=== PATIENT | female | born 1950 | race Asian ===

== ENCOUNTER → 2017-01-15 | Outpatient (CLI) | payer BC, MEDICARE, OTHER ==
--- NOTE | 2017-01-15 14:41 | XR ---
EXAMINATION TYPE: XR chest 2V DATE OF EXAM: 01/15/2017 COMPARISON: NONE TECHNIQUE: PA and lateral views submitted. HISTORY: Presurgical FINDINGS: The lungs are clear and there is no pneumothorax, pleural effusion, or focal pneumonia. Hypertrophi c change of the spine. Postsurgical changes are seen. Question for coronary artery stenting. IMPRESSION: 1. No acute process.
[2017-01-15 14:51] LABS: EKG EKG PERFORMED
[2017-01-15 14:59] LABS: Appearance,Urine Clear (Clear); Bilirubin,Urine Negative (Negative); Glucose,Urine (UA) Negative (Negative); Ketones,Urine Negative (Negative); Leukocyte Esterase,Urine Negative (Negative); Nitrite,Urine Negative (Negative); Protein,Urine Negative (Negative); Specific Gravity,Urine 1.011 (1.001-1.035); UA Billing (MACRO vs. MICRO) CHEM; Urobilinogen,Urine <2.0 mg/dL (<2.0)
[2017-01-15 15:01] LABS: CH 29.8; CHCM 33.6; HCT 43.2 % (34.0-46.0); HDW 2.53; HGB 14.2 gm/dL (11.4-16.0); MCH 29.1 pg (25.0-35.0); MCHC 32.8 g/dL (31.0-37.0); MCV 88.9 fL (80.0-100.0); Mean Platelet Volume 7.5; RBC 4.86 m/uL (3.80-5.40); RDW 13.3 % (11.5-15.5); WBC 8.6 k/uL (3.8-10.6)
[2017-01-15 15:15] LABS: INR 1.1 (<1.2); Partial Thromboplastin Time 24.6 sec (22.0-30.0); Prothrombin Time 10.8 sec (9.0-12.0)
[2017-01-15 15:21] LABS: Anion Gap 12 mmol/L; Blood Urea Nitrogen 19 mg/dL (7-17); Calcium 10.4 mg/dL (8.4-10.2); Carbon Dioxide 25 mmol/L (22-30); Chloride 104 mmol/L (98-107); Glucose 167 mg/dL (74-99); Non-African American GFR(MDRD) 49 (>60 ml/min/1.73 sqM); Potassium 4.4 mmol/L (3.5-5.1); Sodium 141 mmol/L (137-145)
== END | disposition home or self-care (01) ==
LOC: RADXRMAIN 14:20
PROVIDERS: ATTEND Orthopaedic Surgery Orthopaedic Surgery of the Spine
DX: Z01.818 Encounter for other preprocedural examination (principal); M51.27 Other intervertebral disc displacement, lumbosacral region
CPT/HCPCS: 71020; 80048; 81003; 85027; 85610; 85730; 93005

== ENCOUNTER 2017-01-22 10:33 | Day surgery (SDC) | payer BC, MEDICARE, OTHER ==
[2017-01-16 14:42] VITALS: BMI 26.5
--- NOTE | 2017-01-19 11:24 | CONS ---
Consultation dated 01/18/2017. CHIEF COMPLAINT: Preop evaluation. HISTORY OF PRESENT ILLNESS: This 66-year-old female is scheduled to undergo lumbosacral surgery. The patient has been seen by Dr. Lema and is planning her for a laminectomy and decompression with discectomy on L5-S1. The patient for the past few months has been having significant pain. The pain and discomfort is disabling. She has no loss of strength or weakness, however, she has constant pain and discomfort in the right leg with radicular symptoms. The patient's symptoms of pain radiates to the ankle. Patient has been evaluated and scheduled for his surgery. Past medical history is significant for hypertension for the past 50 years, history of diabetes mellitus for the past 15 years. She had breast cancer back in 2001 and again in 2014. She has undergone surgical surgeries. She had post surgery reconstruction and she developed significant infection with MRSA. Patient had removal of the prosthesis and treatment with IV vancomycin. The patient had right breast cancer in 2001, the left breast cancer in 2014 and the left breast implants were infected. Past history of hypothyroidism on replacement therapy. History of coronary artery disease with a stent placed in 1997 and subsequently CABG. 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 She had a stress testing done 3 years ago prior to her breast surgery. The patient at that time had no evidence of any ischemia. She has had no symptoms of angina, palpitations. Her dyspnea on exertion at one flight of stairs is stable. She does bike at least a mile a day. Past surgical history is significant for total abdominal hysterectomy, left shoulder surgery, right mastectomy and reconstruction left mastectomy and reconstruction with removal of the reconstruction. PERSONAL HISTORY: Nonsmoker. No alcohol. VACCINATION HISTORY: Pneumovax in 2008. ALLERGIES: None known. Medications have included Bystolic 5 mg daily, recommended cut it down to 2.5 mg daily. Medications included Humalog 6 units before lunch and 4 units before dinner, Percocet 10/325 one q.6 p.r.n., Lyrica 50 mg t.i.d., Flexeril 10 mg t.i.d., Zantac 150 mg b.i.d., Imdur 60 mg daily, Crestor 10 mg daily, Avalide 150-12.5 half tablet daily, Xanax 0.5 mg 1 at bedtime, Levoxyl 125 mcg daily, aspirin 81 mg daily, which is on hold. Patient uses Lasix 20 mg p.r.n. Allergies to ZYVOX, which caused her to have a rash. SOCIAL HISTORY: Patient , lives with her spouse. Spouse is a physician. FAMILY MEDICAL HISTORY: Father at the age of 70 of myocardial infarction. Mother at the age of 78, she had history diabetes mellitus ( ) history of CVA. Two brothers 70 and 71 with history of hypertension. A sister 66 with history of hypertension. The patient has 2 sons, 29 and 32 in adequate health. REVIEW OF SYSTEMS: NEURO: Denies frequent headaches, dizziness, double vision, blurred vision. No symptoms of TIA, syncope, seizures. PSYCH: Some apprehension. CARDIAC: Denies chest pain, angina, palpitations. Does have some dyspnea on exertion with one flight of stairs. RESPIRATORY: No shortness of breath, cough, hemoptysis. GI: No nausea, vomiting, abdominal pain, hematochezia or melena. ( ) diarrhea. Does have some chronic constipation. CONSTITUTIONAL: No fever or chills. HEMATOLOGICAL: No anemia or bleeding disorder. ENDOCRINE: History of diabetes mellitus with fair control. Hypothyroidism on replacement therapy. SKIN: No rashes or open ulcerations. ENT: Adequate hearing, smell, taste. Dentition well maintained. PHYSICAL EXAMINATION: A pleasant female at present in no distress. Vital signs reveal blood pressure 120/78, pulse 70 and regular. She weighs 159 pounds and BMI is ( ). HEENT: Normocephalic. Neck is supple. Pupils are reactive. Nostrils are clear. Oral cavity is moist. Gums in good health. Ears reveal no drainage. Neck reveals no JVD, carotid bruits or thyromegaly. Chest examination is clear to auscultation and percussion. CARDIAC: Normal S1 and S2 with no gallops or murmurs. Regular rhythm. Abdomen is soft. No palpable masses. Bowel sounds are normal. No organomegaly. No abdominal bruits. Extremities reveal no edema, good pulses both upper and lower extremities. Neurologically, awake, alert, oriented x3 with well coordinated movements. LABORATORY ASSESSMENT: Chest x-ray which revealed no evidence of any infective process. Blood group is A+. CBC was normal. Pt, PTT are normal. Electrolytes are normal. BUN 19, creatinine 1.11. Calcium 10.4. Glucose random was 167. Urinalysis unremarkable with no glycosuria or evidence to suggest infection. EKG and echo results are with Cardiology and pending. ASSESSMENT: 1. Stable coronary artery disease. 2. Hypertension, controlled. 3. History of diabetes mellitus under fair control. 4. Degenerative disc disease. 5. History of carcinoma of the breast. PLAN: The patient is stable to undergo the planned surgical procedure. I recommended for her not to take any medication on the morning of surgery. The patient been given ( ) preoperatively due to the history of MRSA infection post breast surgery. The patient's condition discussed with the patient. Prognosis remains guarded. MTDD
[~2017-01-22 10:33] MED LIST: BACITRACIN 50,000 UNIT, POLYMYXIN B 500,000 UNIT in SODIUM CHLORIDE 0.9% IRRIGATIO 1,00... IRRIGATION ONE; DEXAMETHASONE SOD PHOSPHATE 10 MG/ML 1 ML VIAL IV ONE; HYDROmorphone 1 MG/ML 1 ML SYRINGE IVP PRN; ONDANSETRON 4 MG/2 ML VIAL IVP ONE; ceFAZolin 2 GM in SODIUM CHLORIDE 0.9% 100 ML IVPB ONE
[2017-01-22] MEDS: LACTATED RINGERS 1,000 ML IV SCH (11:44)
[2017-01-22] MEDS ORDERED: LIDOCAINE 1% 20 ML VIAL (10MG/ML) FOR IV START INTRADERMA ONE (11:45)
[2017-01-22 11:49] LABS: Glucose,Whole Blood 113 mg/dL (75-99)
[2017-01-22] MEDS ORDERED: MIDAZOLAM 2 MG/2 ML VIAL IV ONE (12:20)
[2017-01-22] MEDS ORDERED: GELATIN SPONGE,ABSORB (LARGE) 1 EACH SPONGE TOPICAL ONE (12:46)
[2017-01-22] MEDS ORDERED: LIDOCAINE 0.5%-EPI 1:200,000 50 ML VIAL SQ ONE (12:46)
[2017-01-22] MEDS ORDERED: BUPIVACAINE (PF) 0.25% 30 ML VIAL SQ ONE (12:46)
[2017-01-22] MEDS ORDERED: ePHEDrine SULFATE/0.9% NACL/PF 50 MG/5 ML SYRINGE IV ONE (12:57)
[2017-01-22] MEDS ORDERED: SUCCINYLCHOLINE CHLORIDE 100 MG/5 ML SYR IV ONE (12:57)
[2017-01-22] MEDS ORDERED: fentaNYL (PF) 50 MCG/ML 2 ML AMP ONE (12:57)
[2017-01-22] MEDS ORDERED: LIDOCAINE 1% INJ 10MG/ML (20 ML MDV) ONE (12:57)
[2017-01-22] MEDS ORDERED: MIDAZOLAM 2 MG/2 ML VIAL ONE (12:57)
[2017-01-22] MEDS ORDERED: KETAMINE 10 MG/ML 20 ML VIAL ONE (12:57)
[2017-01-22] MEDS ORDERED: PROPOFOL 10 MG/ML 20 ML VIAL IV ONE (12:57)
[2017-01-22] MEDS ORDERED: ROCURONIUM BROMIDE 10 MG/ML 10 ML VIAL IV ONE (12:57)
[2017-01-22] MEDS ORDERED: THROMBIN (BOVINE) 5,000 UNIT VIAL TOPICAL ONE (13:05)
[2017-01-22] MEDS ORDERED: methylPREDNISolone ACETATE 40 MG/ML 1 ML VIAL INJ ONE (13:43)
--- NOTE | 2017-01-22 14:17 | XR ---
EXAMINATION TYPE: XR lumbar spine 1V, FL guidance operating room DATE OF EXAM: 01/22/2017 CLINICAL HISTORY: Lumbar discectomy. Back pain. TECHNIQUE: Fluoroscopy. COMPARISON: CT lumbar spine dated 02/12/2014 FINDINGS/IMPRESSION: Fluoroscopic guidance was provided during procedure performed by Dr. Lema. A total of 3 seconds of fluoroscopic time was utilized during the procedure and 1 spot images was acqui red.
[2017-01-22] MEDS ORDERED: DIAZEPAM 5 MG TAB PO PRN (14:25)
[2017-01-22] MEDS ORDERED: MAGNESIUM HYDROXIDE 2,400 MG/10 ML CUP PO PRN (14:25)
[2017-01-22] MEDS ORDERED: BENZOCAINE/MENTHOL LOZENG 1 EACH LOZENGE MUCOUS MEM PRN (14:25)
[2017-01-22] MEDS ORDERED: HYDROmorphone 1 MG/ML 1 ML SYRINGE IVP PRN (14:25)
[2017-01-22] MEDS ORDERED: ONDANSETRON 4 MG/2 ML VIAL IVP PRN (14:26)
[2017-01-22] MEDS ORDERED: IBUPROFEN 600 MG TAB PO PRN (14:26)
[2017-01-22] MEDS ORDERED: oxyCODONE-APAP 5-325MG 1 EACH TAB PO PRN (14:26)
[2017-01-22] MEDS ORDERED: FUROSEMIDE 20 MG TAB PO PRN (14:28)
[2017-01-22] MEDS ORDERED: CYCLOBENZAPRINE 10 MG TAB PO PRN (14:28)
[2017-01-22] MEDS ORDERED: LORATADINE 10 MG TAB PO PRN (14:28)
[2017-01-22] MEDS ORDERED: SENNOSIDES-DOCUSATE SODIUM 1 EACH TAB PO PRN (14:28)
[2017-01-22] MEDS ORDERED: POTASSIUM CHLORIDE ER 10 MEQ TAB.ER.PRT PO PRN (14:28)
--- NOTE | 2017-01-22 14:34 | P.OP ---
Date of Procedure: 01/22/17 Preoperative Diagnosis: Herniated nucleus pulposus L5-S1 Right lower extremity radiculopathy Right lower extremity weakness Postoperative Diagnosis: Same Procedure(s) Performed: Implants: Anesthesia: GETA Pathology: none sent Condition: stable Disposition: PACU Indications for Procedure: Operative Findings: Description of Procedure: BRIEF OPERATIVE NOTE Preoperative Diagnosis: Herniated nucleus pulposus L5-S1, right lower extremity radiculopathy, right lower extremity weakness, degenerative disc disease Postoperative Diagnosis: Same Procedure: Laminectomy and decompression L5-S1 Discectomy for decompression L5-S1 Surgeon: Dr. Lema Box Chipper: Brian MORRIS who is present throughout the entire the case persistence during positioning, dissection, exposure, visualization, and all crucial elements of the case as well as closure. Anesthesia: General anesthesia Estimated blood loss: Less than 50 mL Complications: None apparent Components implanted: None Disposition: To recovery room in good stable condition. OPERATIVE INDICATIONS The patient has been having issues in their lower back and lower extremities. She has been having severe right lower extremity radicular pain over S1 distribution. She is found have a new herniated disc at L5-S1 which correlated well with her symptoms. She does have a number of significant degenerative changes at her lumbar spine but these appear to be chronic in her new and acute issue appeared to be that of a disc herniation with radiculopathy at her right lower extremity. She was having some weakness at her right lower extremity as well. Her symptoms correlated best with the new disc herniation at L5-S1 we discussed dust various treatment options. She had gone through conservative treatment without significant benefit. The patient has been through conservative treatment. We discussed the possible continuation of conservative care versus the possibility of surgical intervention. We discussed various treatment options including surgery, and the patient wishes to proceed with surgery We discussed the risk, patient's alternatives and benefits of surgery including but not limited to, risk of bleeding risk of infection, risk of need for further surgery, risk of decreased, loss of motion, loss of function, nerve damage, paralysis, heart attack, blindness and . OPERATIVE SUMMARY After discussing all the risks, patient alternatives and benefits at length, the patient elected to proceed with surgical intervention, signed informed consent, and presented for their procedure. The patient was seen and examined in the preoperative holding area and the surgical site was marked. The patient was given antibiotics and brought to the operating room. The patient was sedated and intubated by anesthesia in standard fashion. The patient was positioned on to the operating room table in a prone position on the appropriate frame which was well-padded and well molded. We were careful to pad any bony prominences and pressure points. We were careful to maintain the patient's cervical spine and good neutral alignment and position throughout. The patient was prepped and draped in a normal standard fashion. An appropriate timeout and keystone protocol performed. We were able to proceed with the surgery. Fluoroscopy was utilized to establish the appropriate level at L5-S1. The local wound area was infiltrated with local anesthetic. An incision was made at the midline longitudinally over the appropriate levels at L5-S1. Dissection was taken down subcutaneously to the level of the fascia which was split midline. Dissection was taken over the lamina. Intraoperative fluoroscopy was taken which showed a marker at the appropriate level at L5-S1. With the appropriate level positively confirmed, we were able to proceed with laminectomy. The wound was copiously irrigated and suctioned dry as had been done periodically throughout the case. I performed a laminectomy with a combination of curettes and a high-speed bur and Kerrison rongeurs. A small medial facetectomy was performed again further access. A partial foraminotomy was also performed. Portions of the ligamentum flavum were taken down to expose the dura and traversing nerve root. I was able to mobilize the traversing nerve root and gain access to the disc space. Note was made of obvious compression from the disc. There is some evidence of extruded disc fragment causing significant compression of the traversing nerve root. Protecting the soft tissue structures, a small annulotomy was established. I was able to perform discectomy and remove any extruded disc fragments and any loose fragments from within the disc itself. There is some significant disc desiccation noted. I tried to preserve the disc annulus that appeared stable. I was able get good decompression at the space. There were no further extruded fragments noted. There is no evidence of dural tear or leak. Good hemostasis maintained. The wound was copiously irrigated and suctioned dry. Good decompression and discectomy was noted. We were able to proceed with closure. The fascia was closed for a watertight closure. The subcuticular tissue was closed with absorbable suture. The wound was cleaned and dried and dressed with the appropriate dressing. The drapes were broken down. The patient was gently rolled back onto their hospital bed being careful to maintain their cervical spine and good neutral alignment and position. They were woken up by anesthesia, extubated, and brought to the recovery room in good stable condition. The patient will be admitted to the hospital for observation and for appropriate postoperative care, medical management and monitoring. We will continue to follow them closely about the postoperative course.
[2017-01-22 15:07] LABS: Glucose,Whole Blood 118 mg/dL (75-99)
[2017-01-22] MEDS ORDERED: LACTATED RINGERS 1,000 ML IV ONE (15:26)
[2017-01-22] MEDS: SODIUM CHLORIDE 0.9% 1,000 ML IV SCH (15:59)
[2017-01-22] MEDS: oxyCODONE-APAP 10-325MG 1 EACH TAB PO PRN ×2 (16:29→22:36)
[2017-01-22] MEDS: PREGABALIN 50 MG CAP PO SCH ×2 (16:50→22:36)
[2017-01-22 17:20] LABS: Glucose,Whole Blood 96 mg/dL (75-99)
[2017-01-22] MEDS: HYDROmorphone 1 MG/ML 1 ML SYRINGE IVP PRN (18:04)
[2017-01-22 20:18] LABS: Glucose,Whole Blood 174 mg/dL (75-99)
[2017-01-22] MEDS ORDERED: ISOSORBIDE MONONITRATE ER 60 MG TAB.ER.24H PO SCH (21:00)
[2017-01-22] MEDS ORDERED: PANTOPRAZOLE 40 MG TABLET PO SCH (21:00)
[2017-01-22] MEDS ORDERED: ALPRAZolam 0.5 MG TAB PO SCH (21:00)
[2017-01-22] MEDS ORDERED: NEBIVOLOL 5 MG TAB PO SCH (21:00)
[2017-01-22] MEDS ORDERED: ATORVASTATIN 20 MG TAB PO SCH (21:00)
[2017-01-22] MEDS ORDERED: INSULIN GLARGINE 100 UNIT/ML 10 ML VIAL SQ SCH (21:00)
[2017-01-22] MEDS: ceFAZolin 2 GM in SODIUM CHLORIDE 0.9% 100 ML IVPB SCH (22:38)
[2017-01-23] MEDS: HYDROmorphone 1 MG/ML 1 ML SYRINGE IVP PRN (04:45)
[2017-01-23] MEDS: ceFAZolin 2 GM in SODIUM CHLORIDE 0.9% 100 ML IVPB SCH (04:46)
[2017-01-23] MEDS: SODIUM CHLORIDE 0.9% 1,000 ML IV SCH (05:14)
[2017-01-23] MEDS ORDERED: LEVOTHYROXINE 125 MCG TAB PO SCH (06:30)
[2017-01-23] MEDS: LACTATED RINGERS 1,000 ML IV SCH (07:25)
[2017-01-23 07:36] LABS: Glucose,Whole Blood 165 mg/dL (75-99)
[2017-01-23 07:57] VITALS: RESP 18; TEMP 97.1
[2017-01-23 08:01] VITALS: BP 126/58; PULSE 67
[2017-01-23] MEDS: PREGABALIN 50 MG CAP PO SCH (08:02)
--- NOTE | 2017-01-23 08:11 | P.DS ---
Providers Date of admission: The patient presented on the day of admission as per her operative note. She had a disc herniation at L5-S1 which is causing severe stenosis with right lower extremity radiculopathy and weakness. She underwent her laminectomy decompression with discectomy and feels that she has had significant improvement in her leg already. She is having some soreness in her back as expected. She is tolerating her diet and has been up to the bathroom and voiding freely. Physical Exam The incision site is clean dry and intact. There is no erythema no drainage. There is no purulence no evidence of infection. There is no active drainage. The Tegaderm is sealed. Abdomen soft and nontender. Chest has good excursion with deep inspiration and expiration. The patient has active and passive range of motion intact at the upper and lower extremities. There is no acute change in neurologic status. She may have some increased strength with plantar flexion. Hospital Course Postoperative day #1 status post laminectomy decompression with discectomy at L5 -S1 for her herniated nucleus pulposis with right lower extremity radiculopathy and weakness. She feels that she has had good improvement in her right leg in terms of pain already. She has been ambulatory in her room. Her back is sore but is being controlled with medicines. The patient has been making good progress postoperatively. They have completed the prophylactic antibiotics without any signs or symptoms of infection. The patient has been able to advance their diet , and is tolerating diet adequately. The pain was initially controlled with IV medications and is now controlled appropriately with oral medications. The patient has been able to increase their mobilization. The patient has progressed appropriately. I think they are in good stable condition for discharge today. They will be sent home with appropriate prescriptions. I answered their questions to the best of my ability in a language that they can understand and they are agreeable with the plan. They will follow up as directed in approximately 2 weeks or sooner if she is having any problems. Attending physician: South Lema Consults: 01/22/17 14:26 Consult Physician Routine Consulting Provider: Gage Caro Consult Reason/Comments: Medical management Do you want consulting provider notified?: Yes Primary care physician: Gage Caro Plan - Discharge Summary New Discharge Prescriptions: No Action Sennosides/Docusate Sodium [Naina-Colace Tablet] 1 tab PO DAILY PRN PRN Reason: Constipation Cyclobenzaprine [Flexeril] 10 mg PO TID PRN PRN Reason: Pain oxyCODONE HCL/ACETAMINOPHEN [Percocet 10-325 mg] 1 tab PO Q6HR PRN PRN Reason: Pain Pregabalin [Lyrica] 50 mg PO TID Potassium Chloride [K-Tab ER] 10 meq PO DAILY PRN PRN Reason: with lasix Loratadine [Claritin] 10 mg PO DAILY PRN PRN Reason: Congestion Furosemide [Lasix] 20 mg PO DAILY PRN PRN Reason: Edema Insulin Glargine,Hum.rec.anlog [Lantus Solostar] 16 units SQ HS ALPRAZolam [Xanax] 0.5 mg PO HS Rosuvastatin [Crestor] 10 mg PO HS Omeprazole [PriLOSEC] 20 mg PO HS Nebivolol [Bystolic] 5 mg PO HS Multivitamins, Thera [Multivitamin (formulary)] 1 tab PO DAILY Isosorbide Mononitrate ER [Imdur] 60 mg PO HS Aspirin 162 mg PO DAILY Levothyroxine Sodium [Synthroid] 125 mcg PO QAM Irbesartan/Hydrochlorothiazide [Irbesartan-Hctz 150-12.5 mg Tb] 1 tab PO QAM Discharge Medication List ALPRAZolam [Xanax] 0.5 mg PO HS 01/16/17 [History] Aspirin 162 mg PO DAILY 01/16/17 [History] Cyclobenzaprine [Flexeril] 10 mg PO TID PRN 01/16/17 [History] Furosemide [Lasix] 20 mg PO DAILY PRN 01/16/17 [History] Insulin Glargine,Hum.rec.anlog [Lantus Solostar] 16 units SQ HS 01/16/17 [ History] Irbesartan/Hydrochlorothiazide [Irbesartan-Hctz 150-12.5 mg Tb] 1 tab PO QAM 01/25 [History] Isosorbide Mononitrate ER [Imdur] 60 mg PO HS 01/16/17 [History] Levothyroxine Sodium [Synthroid] 125 mcg PO QAM 01/16/17 [History] Loratadine [Claritin] 10 mg PO DAILY PRN 01/16/17 [History] Multivitamins, Thera [Multivitamin (formulary)] 1 tab PO DAILY 01/16/17 [History ] Nebivolol [Bystolic] 5 mg PO HS 01/16/17 [History] Omeprazole [PriLOSEC] 20 mg PO HS 01/16/17 [History] Potassium Chloride [K-Tab ER] 10 meq PO DAILY PRN 01/16/17 [History] Pregabalin [Lyrica] 50 mg PO TID 01/16/17 [History] Rosuvastatin [Crestor] 10 mg PO HS 01/16/17 [History] Sennosides/Docusate Sodium [Naina-Colace Tablet] 1 tab PO DAILY PRN 01/16/17 [ History] oxyCODONE HCL/ACETAMINOPHEN [Percocet 10-325 mg] 1 tab PO Q6HR PRN 01/16/17 [ History] Follow up Appointment(s)/Referral(s): South Lema DO [Doctor of Osteopathic Medicine] - 2 Weeks Activity/Diet/Wound Care/Special Instructions: Avoid heavy or rigorous activity. May ambulate to tolerance. No repetitive bending twisting or stooping. No heavy lifting. May shower with waterproof Tegaderm intact. Keep site clean. On Sunday May remove dressing and then may leave area uncovered, but leave Steri-Strips intact and allow them to fray off on their own.
[2017-01-23] MEDS: oxyCODONE-APAP 10-325MG 1 EACH TAB PO PRN (08:37)
[2017-01-23] MEDS ORDERED: LOSARTAN-HCTZ 50-12.5 MG 1 EACH TAB PO SCH (09:00)
[2017-01-23] MEDS ORDERED: IRBESARTAN PO SCH (09:00)
[2017-01-23] MEDS ORDERED: SENNOSIDES-DOCUSATE SODIUM 1 EACH TAB PO SCH (09:00)
[2017-01-23] MEDS ORDERED: ASPIRIN 81 MG PO SCH (09:00)
[2017-01-23] MEDS ORDERED: HYDROCHLOROTHIAZIDE PO SCH (09:00)
[2017-01-23] MEDS ORDERED: [UNRECOGNIZED DRUG - OTHER] PO SCH (09:00)
--- NOTE | 2017-01-23 10:03 | PN ---
DATE OF SERVICE: 01/22/2017 CHIEF COMPLAINT: Re-evaluation . HISTORY OF PRESENT ILLNESS: This 66-year-old female was admitted to the hospital and undergone lumbar surgery. She felt a pain in the right leg significantly improved since surgery. The patient, however, has back pain, which is the site of surgery. Patient does have underlying history of coronary artery disease, stable with no symptoms of angina or palpitations, history of diabetes mellitus with adequately controlled sugars. She has had a previous history of carcinoma of the breasts bilateral. The patient at present denies any major symptoms. REVIEW OF SYSTEMS: NEURO: Has a headache. No dizziness. No double vision. PSYCH: No anxiety or depression. CARDIAC: No chest pain, angina or palpitation. RESPIRATORY: No shortness of breath, cough, hemoptysis. GI: No nausea, vomiting, abdominal pain. : No symptoms of dysuria or hematuria. EXTREMITIES: Denies pain. CONSTITUTIONAL: No fever or chills. PHYSICAL EXAMINATION: A pleasant female in no distress. Vitals reveal pulse 64, blood pressure 144/77, pulse ox 98% on 2 L. HEENT: Normocephalic. NECK: No JVD. CHEST: Clear to auscultation and percussion. CARDIAC: Normal S1, S2 with no gallops. Systolic murmur 2/6 left sternal border. ABDOMEN: Soft. Bowel sounds present. Extremities reveal no edema. Good pulses both upper and lower extremities. Neurologically: Awake, alert and oriented with well coordinated movements. LABORATORY ASSESSMENT: Blood sugar 118. ASSESSMENT: 1. Diabetes mellitus, adequately controlled. 2. Coronary artery disease, stable. 3. Degenerative arthritis. 4. Status post lumbar surgery. 5. History of carcinoma of the breast. PLAN: The patient is stable. Continue the present medical regimen. Condition discussed with the patient and spouse. Prognosis remains guarded. MTDD
[2017-01-23] MEDS ORDERED: MULTIVITAMINS, THERA 1 EACH TAB PO SCH (12:00)
--- NOTE | 2017-01-24 09:53 | PN ---
CHIEF COMPLAINT: Re-evaluation. HISTORY OF PRESENT ILLNESS: 66-year-old female status post lumbosacral surgery. The patient is doing well. Her pain in the right lower leg is resolved. She does complain of pain in the lower back at the site of the surgery. Otherwise, denies any other symptoms. REVIEW OF SYSTEMS: NEURO: Has some headache. Denies any dizziness. No pain in right leg. CARDIAC: Denies chest pain, angina, palpitation. RESPIRATORY: No shortness of breath, cough or hemoptysis. GI: No nausea, vomiting, abdominal pain, diarrhea. No bowel movement. : No dysuria or hematuria. EXTREMITIES: No pain. MUSCULOSKELETAL: Spine pain. PSYCH: No anxiety or depression. PHYSICAL EXAMINATION: Pleasant female in no distress. VITAL SIGNS: Reveal temperature 97.1, pulse 65, respirations 18, blood [id number]/58, pulse ox 96% on room air. HEENT: Normocephalic. NECK: No JVD. CHEST: Clear to auscultation. CARDIAC: Normal S1/S2 with no gallop. Systolic murmur 2/6 left sternal border. ABDOMEN: Soft. Bowel sounds present. EXTREMITIES: Reveal no edema, no tenderness. NEUROLOGIC: Awake, alert, oriented with well coordinated movement. LABORATORY ASSESSMENT: None new. Blood sugar this morning was 165. ASSESSMENT: 1. Diabetes mellitus on medical therapy. 2. Status post lumbosacral surgery. 3. Coronary artery disease, stable. 4. History of carcinoma of the breast. PLAN: The patient is stable. Will continue present medical regimen. Patient' s condition discussed withe patient. Prognosis guarded. MTDD
== END 2017-01-23 10:30 | disposition home or self-care (01) ==
LOC: OR 10:33 → 3SUR 14:37 → OR 01-23 10:30
PROVIDERS: ATTEND Orthopaedic Surgery Orthopaedic Surgery of the Spine
DX: M51.17 Intervertebral disc disorders with radiculopathy, lumbosacral region (principal); M51.16 Intervertebral disc disorders with radiculopathy, lumbar region; E03.9 Hypothyroidism, unspecified; E78.5 Hyperlipidemia, unspecified; I11.9 Hypertensive heart disease without heart failure; I25.10 Atherosclerotic heart disease of native coronary artery without angina pectoris; E11.9 Type 2 diabetes mellitus without complications; Z79.4 Long term (current) use of insulin; Z79.891 Long term (current) use of opiate analgesic; Z79.899 Other long term (current) drug therapy; Z88.1 Allergy status to other antibiotic agents; Z88.5 Allergy status to narcotic agent
CPT/HCPCS: 63047; 97161; 86900; 86901; 86850; 72020; J2250; J1030; J0690 ×2; J2405; J2001; J3010; J1170 ×2; J0330; J2704

== ENCOUNTER 2017-11-08 09:08 | Day surgery (SDC) | payer BC, MEDICARE, OTHER ==
[2017-11-06 10:55] VITALS: BMI 28.3
[~2017-11-08 09:08] MED LIST changes: -BACITRACIN 50,000 UNIT, POLYMYXIN B 500,000 UNIT in SODIUM CHLORIDE 0.9% IRRIGATIO 1,00... IRRIGATION ONE; -DEXAMETHASONE SOD PHOSPHATE 10 MG/ML 1 ML VIAL IV ONE; -HYDROmorphone 1 MG/ML 1 ML SYRINGE IVP PRN; +LACTATED RINGERS 1,000 ML IV SCH; -ONDANSETRON 4 MG/2 ML VIAL IVP ONE; -ceFAZolin 2 GM in SODIUM CHLORIDE 0.9% 100 ML IVPB ONE
[2017-11-08 09:33] VITALS: RESP 16; TEMP 97.7
[2017-11-08] MEDS ORDERED: LIDOCAINE 1% 20 ML VIAL (10MG/ML) FOR IV START INTRADERMA ONE (09:34)
[2017-11-08 09:35] LABS: Glucose,Whole Blood 139 mg/dL (75-99)
[2017-11-08] MEDS ORDERED: ONDANSETRON 4 MG/2 ML VIAL IVP ONE (09:40)
[2017-11-08] MEDS ORDERED: LIDOCAINE 1% INJ 10MG/ML (20 ML MDV) ONE (10:35)
[2017-11-08] MEDS ORDERED: PROPOFOL 10 MG/ML 20 ML VIAL IV ONE (10:35)
--- NOTE | 2017-11-08 10:57 | P.PCN ---
Date of Procedure: 11/08/17 Procedure(s) Performed: Brief history: Patient is a pleasant 67-year-old female, scheduled for an elective upper endoscopy as well as colonoscopy as a part of evaluation of abdominal pain for the last 2 months duration. Pain is mostly in the epigastric area associated with nausea but no emesis. She has been on Prilosec 20 mg twice daily with no help. She is hence scheduled for an upper endoscopy today. She'll also scheduled for screening colonoscopy in the last colonoscopy was 10 years ago. Procedure performed: Esophagogastroduodenoscopy with biopsy Colonoscopy with snare polypectomy Preoperative diagnosis: Epigastric pain/GERD Screening for colon cancer Anesthesia: MAC Procedure: After informed consent was obtained from the patient was brought into the endoscopy unit and IV sedation was administered by anesthesia under continuous monitoring. Initially upper endoscopy was done. The Olympus GF 160 video endoscope was inserted inserted into the mouth and esophagus intubated without any difficulty and was gradually advanced into the stomach and duodenum and carefully examined. The bulb and second part of the duodenum appeared normal. The scope was then withdrawn into the stomach adequately insufflated with air and upon careful examination in the antrum there were 2 ulcerations measuring 5 mm and 2 cm in size both of which were biopsied. and body, cardia and fundus appeared normal. The scope was then withdrawn into the esophagus. The GE junction was located at 40 cm to the incisors. It appeared regular with no erythema erosions or ulcerations. Rest of the esophagus appeared normal. Patient tolerated the procedure well. At this time the patient continued to remain sedation. Initial digital rectal examination was normal. Olympus CF 160 video colonoscope was then inserted into the rectum and gradually advanced to the cecum without any difficulty. Careful examination was performed as the scope was gradually being withdrawn. The prep was excellent. The cecum, appeared normal. In the ascending colon there was a 5-6 mm sessile polyp removed by snare polypectomy. The rest of the ascending colon, transverse colon, descending colon, sigmoid colon and rectum appeared normal. Retroflexion was performed in the rectum and small internal hemorrhoids were noted. Patient tolerated the procedure well. Impression: 1. Upper endoscopy revealed 2 antral ulcers measuring 5 mm and 2 cm in size and multiple superficial duodenal erosions or ulcerations. 2. Colonoscopy revealed 5-6 cm sessile ascending colon polyp status post polypectomy and small internal hemorrhoids. Recommendations: Findings of this examination were discussed with the patient as well as her family. She was advised to follow with the biopsy results. She will continue with omeprazole 20 mg twice daily and follow antireflux measures. She was advised to avoid NSAIDs. If the biopsy the colon polyp shows a tubular adenoma , she can have a repeat colonoscopy in 5 years.
[2017-11-08 11:10] LABS: Glucose,Whole Blood 138 mg/dL (75-99)
[2017-11-08 11:53] VITALS: BP 162/76; PULSE 65
[2017-11-08] MEDS ORDERED: MAG HYDROX/AL HYDROX/SIMETH 30 ML CUP PO PRN (12:14)
== END 2017-11-08 13:03 | disposition home or self-care (01) ==
LOC: ORWHC2ENDO 09:08
PROVIDERS: ATTEND Internal Medicine Gastroenterology
DX: D12.2 Benign neoplasm of ascending colon (principal); K21.9 Gastro-esophageal reflux disease without esophagitis; K25.9 Gastric ulcer, unspecified as acute or chronic, without hemorrhage or perforation; K26.9 Duodenal ulcer, unspecified as acute or chronic, without hemorrhage or perforation; E11.9 Type 2 diabetes mellitus without complications; I10 Essential (primary) hypertension; E78.5 Hyperlipidemia, unspecified; K64.8 Other hemorrhoids; Z88.5 Allergy status to narcotic agent; Z88.1 Allergy status to other antibiotic agents; Z95.1 Presence of aortocoronary bypass graft; Z95.5 Presence of coronary angioplasty implant and graft; Z79.891 Long term (current) use of opiate analgesic; Z79.4 Long term (current) use of insulin; Z79.82 Long term (current) use of aspirin; Z79.899 Other long term (current) drug therapy
CPT/HCPCS: 88305; 45385; 43239; J2405; J2001; J2704

== ENCOUNTER → 2021-09-28 | Outpatient (CLI) | payer MEDICARE ==
[~2021-09-28] MED LIST changes: +AMINOPHYLLINE 500 MG/20 ML VIAL IV ONE; -LACTATED RINGERS 1,000 ML IV SCH; +REGADENOSON 0.4 MG/5 ML SYRINGE IV PRN
--- NOTE | 2021-09-28 10:10 | CA ---
Transthoracic Echo Report Name: Kathy Johnson Age: 71 Gender: F : 1950 Exam Date: 09/28/2021 08:37 Exam Location: [facility] Ht (in): 63 Wt (lb): 169 Ordering Physician: Ruth Gonzales MD Attending/Referring Phys: Web Programmer Libby Lenug RDCS Procedure CPT: Indications: I20.0 unstable angina Cardiac Hx: Bypass and 1 stent Technical Quality: Contrast 1: Total Dose (mL): Contrast 2: Total Dose (mL): MEASUREMENTS (Male / Female) Normal Values 2D ECHO LV Diastolic Diameter PLAX 4.4 cm 4.2 - 5.9 / 3.9 - 5.3 cm LV Systolic Diameter PLAX 2.4 cm IVS Diastolic Thickness 1.2 cm 0.6 - 1.0 / 0.6 - 0.9 cm LVPW Diastolic Thickness 1.5 cm 0.6 - 1.0 / 0.6 - 0.9 cm LV Relative Wall Thickness 0.6 RV Internal Dim ED PLAX 2.6 cm M-MODE Aortic Root Diameter MM 2.8 cm LA Systolic Diameter MM 3.6 cm LA Ao Ratio MM 1.3 MV E Point Septal Separation 0.6 cm AV Cusp Separation MM 1.6 cm DOPPLER AV Peak Velocity 148.2 cm/s AV Peak Gradient 8.8 mmHg AI Peak Velocity 166.7 cm/s AI Peak Gradient 11.1 mmHg AI Pressure Half Time 770.5 ms MV Area PHT 3.7 cm MR Peak Velocity 110.3 cm/s MR Peak Gradient 4.9 mmHg Mitral E Point Velocity 76.1 cm/s Mitral A Point Velocity 85.3 cm/s Mitral E to A Ratio 0.9 MV Deceleration Time 203.3 ms MV E' Velocity 6.5 cm/s Mitral E to MV E' Ratio 11.7 TR Peak Velocity 147.4 cm/s TR Peak Gradient 8.7 mmHg Right Ventricular Systolic Press 13.7 mmHg FINDINGS Left Ventricle Mildly increased septal wall thickness. Moderately increased posterior wall thickness. Basal inferior septal and basal inferior is hypokinetic. Ejection fraction is 45-50%. Right Ventricle Normal right ventricular size and function. Right ventricular systolic pressure within normal limits. Right Atrium Normal right atrial size. Left Atrium Normal left atrial size. Mitral Valve Structurally normal mitral valve. Trace mitral regurgitation. Aortic Valve Trileaflet aortic valve. Trace aortic regurgitation. Tricuspid Valve Trace tricuspid regurgitation. Pulmonic Valve Pulmonic valve not well visualized. Pericardium Normal pericardium. Aorta Normal size aortic root and proximal ascending aorta. CONCLUSIONS #1. Concentric mild to moderate left ventricular hypertrophy with ejection fraction close to 50%. #2. There is hypokinesis of the inferobasal segment and inferior septal segment. #3. Normal valvular function with trace aortic and mitral regurgitation. #4. There is no pericardial effusion Previewed by: Dr. Fan Valenzuela MD (Electronically Signed) Final Date: 28 September 2021 10:08
--- NOTE | 2021-09-28 11:18 | P.STRESS ---
- Stress Test Note Stress Test Results/Findings: Exam Performed: NM stress lexiscan cardiolite Exam Date: 09/28/21 Reason for Exam: [place] Height: 5 ft 3 in Weight: 76.657 kg Protocol: LEXISCAN CARDIOLITE Stage: NA Duration of Exercise: NA Resting Heart Rate: 66 Resting Blood Pressure: 176/84 Maximum Achieved Heart Rate: 88 Maximum Achieved Blood Pressure: 180/86 85% PMHR: 127 100% PMHR: 149 METS: NA Technologist Comment: Stress Test Results/Findings: This is a 71-year-old female with history of hypertension, diabetes and hypercholesterolemia being evaluated for chest pains and shortness of breath. Patient also has COPD Stress data: Baseline EKG showed sinus rhythm with evidence of right bundle- branch block pattern. Blood pressure at rest is 176/84 with a pulse rate of 66. History and also Lexiscan was infused. EKGs during and after infusion continued to show right bundle branch block without any significant change from the baseline. Patient developed headache, nausea which were relieved after giving IV Aminophyllin. Final impression: #1. Negative Lexiscan stress test #2. Report on the nuclear images to be provided by the radiologist.
--- NOTE | 2021-09-28 12:06 | NM ---
EXAMINATION TYPE: NM stress lexiscan cardiolite DATE OF EXAM: 09/28/2021 COMPARISON: NONE HISTORY: I20.0 unstable angina TECHNIQUE: After the intravenous administration of 9.7 mCi Tc 99m Sestamibi - Cardiolite resting SPE CT images acquired 47 minutes post injection. The patient received 0.4mg Lexiscan, 24.4 mCi Tc 99m Sestamibi - Stress images obtained [address] injection FINDINGS: Review of stress and rest SPECT images demonstrates reversible decreased perfusion inferior wall. Str ess-induced ischemia is not excluded. Gated analysis shows normal wall motion with an estimated left ventricular ejection fraction of 70 %. IMPRESSION: I cannot exclude stress-induced ischemia inferior wall.
== END | disposition home or self-care (01) ==
LOC: RADECHMAIN 08:07
PROVIDERS: ATTEND Family Medicine
DX: I20.0 Unstable angina (principal)
CPT/HCPCS: 93017; 93306; 78452; A9500; J2785

== ENCOUNTER → 2021-10-03 | Outpatient (CLI) | payer MEDICARE ==
[2021-10-03 23:31] LABS: HCT 35.5 % (37.2-46.3); MCH 20.7 pg (27.0-32.0); MCHC 28.2 g/dL (32.0-37.0); MCV 73.3 fL (80.0-97.0); Mean Platelet Volume 10.4 fL (9.5-12.2); NRBC Per 100 WBC 0 /100 WBCS (0.0-0.0); Platelet Count 405 X 10*3/uL (140-440); RBC 4.84 X 10*6/uL (4.10-5.20); RDW 22.4 % (11.5-14.5); WBC 9.22 X 10*3/uL (4.50-10.00)
[2021-10-04 04:58] LABS: African American GFR (CKD) 58.5 (60.0-200.0); Blood Urea Nitrogen 20.3 mg/dL (9.0-27.0); Non-African American GFR(CKD) 50.5 (60.0-200.0); Potassium 4.4 mmol/L (3.5-5.5)
== END | disposition home or self-care (01) ==
LOC: LABPAT 14:52
PROVIDERS: ATTEND Internal Medicine Cardiovascular Disease
DX: Z01.812 Encounter for preprocedural laboratory examination (principal); R07.9 Chest pain, unspecified
CPT/HCPCS: 36415; 80051; 82565; 84520; 85027

== ENCOUNTER 2021-10-06 09:07 | Day surgery (SDC) | payer MEDICARE ==
[2021-10-04 15:05] VITALS: BMI 29.7
[~2021-10-06 09:07] MED LIST changes: +ALPRAZolam 0.25 MG TAB PO PRN; +ALPRAZolam 0.5 MG TAB PO PRN; -AMINOPHYLLINE 500 MG/20 ML VIAL IV ONE; +ASPIRIN 325 MG TAB PO ONE; +ATORVASTATIN 80 MG TAB PO ONE; +EMPTY BAG 1 BAG with SODIUM CHLORIDE 0.9% 1,000 ML IV SCH; +HEPARIN SODIUM,PORCINE 10,000 UNIT in SODIUM CHLORIDE 0.9% 1,000 ML IRRIGATION PRN; +HEPARIN SODIUM,PORCINE 2,500 UNIT in SODIUM CHLORIDE 0.9% 250 ML IRRIGATION PRN; +NITROGLYCERIN SL TABS 0.4 MG TAB SUBLINGUAL PRN; -REGADENOSON 0.4 MG/5 ML SYRINGE IV PRN
[2021-10-06 09:27] VITALS: RESP 18; TEMP 97.1
[2021-10-06] MEDS ORDERED: SODIUM CHLORIDE 0.9% 1,000 ML IV ONE (09:30)
[2021-10-06 09:36] LABS: Glucose,Whole Blood 131 mg/dL (75-99)
[2021-10-06] MEDS ORDERED: VERAPAMIL 2.5 MG/ML 2 ML AMP ONE (09:45)
[2021-10-06] MEDS ORDERED: HEPARIN SODIUM 1,000 UN/ML (10ML VL) ONE (09:45)
[2021-10-06] MEDS ORDERED: MIDAZOLAM 2 MG/2 ML VIAL IV ONE (09:57)
[2021-10-06] MEDS ORDERED: LIDOCAINE 1% INJ 10MG/ML (5 ML VIAL-PF) SQ ONE (09:59)
[2021-10-06] MEDS ORDERED: fentaNYL (PF) 50 MCG/ML 2 ML AMP ONE (09:59)
[2021-10-06] MEDS ORDERED: fentaNYL (PF) 50 MCG/ML 2 ML AMP IV ONE (09:59)
[2021-10-06] MEDS ORDERED: VERAPAMIL SYRINGE (5 MG/10 ML) INTRAARTER ONE (10:00)
[2021-10-06] MEDS ORDERED: HEPARIN SODIUM 1,000 UN/ML (10ML VL) IV ONE (10:08)
[2021-10-06] MEDS ORDERED: IOPAMIDOL-370 100ML BTL INJ ONE (10:21)
[2021-10-06] MEDS ORDERED: SODIUM CHLORIDE 0.9% 1,000 ML IV SCH (10:30)
--- NOTE | 2021-10-06 12:27 | CC ---
CARDIAC CATHETERIZATION REPORT DATE OF SERVICE: 10/06/2021 PROCEDURE: Left heart catheterization, coronary angiography and selective injection of bypass graft. PERFORMED BY: Dr. Ruth Mcdonough. Moderate conscious sedation time was 20 minutes. Patient was administered Versed and fentanyl. Oxygen saturation, hemodynamics and EKG were monitored closely. CLINICAL INFORMATION: Mrs. Kathy Johnson is a 71-year-old lady with type 2 diabetes, hypertension, hyperlipidemia, previous stenting of RCA that was complicated by a dissection requiring single-vessel bypass surgery about 10 years ago in [place]. She has been having symptoms of nondescript chest tightness and pressure with activity and a positive stress test. She was seen and evaluated by Dr. Carter, who advised cardiac catheterization and requested me to perform the procedure. I met with the patient and her , spoke to them at length regarding the rationale, risks, benefits and options. They understood all details and wished to proceed with the procedure. PROCEDURE NOTE: Under local anesthesia and strict aseptic precautions, a 6-Amharic introducer was placed in the right radial artery. Using JL3.5 and JR4 catheters, I performed coronary angiography, and the same right catheter was used to check LV pressures. The same catheter was used to check selective injection of the [place] RCA and the vein graft to RCA. Patient tolerated procedure well. The sheath was taken out and TR band applied as per protocol. Saturation in the fingers of the right hand was 96%. Patient received 3000 units of heparin intravenously. CARDIAC CATHETERIZATION FINDINGS: The left ventricular end-diastolic pressure was about 13 to 14 mmHg without any gradient across the aortic valve. CORONARY ANGIOGRAPHY FINDINGS: RIGHT CORONARY ARTERY: This is totally occluded, seen as a stump, with very limited antegrade flow. SAPHENOUS VEIN GRAFT TO THE RCA: This graft is also totally occluded and seen as a stump. LEFT MAIN CORONARY ARTERY: Short, patent, disease-free vessel that bifurcates into LAD and circumflex. LEFT ANTERIOR DESCENDING CORONARY ARTERY: Good-caliber vessel extends along the anterior wall, gives off septal and diagonal branches. LAD is a large system. No significant disease. It curves over the apex and supplies the inferoapical portion of the left ventricle. Septal branches have minor irregularities and they provide rich collaterals to the distal branches of RCA. There is one diagonal branch of about 1.5 to 2 mm in caliber, small distribution, has a mid lesion of 60%. No significant disease in the rest of LAD. LEFT POSTERIOR CIRCUMFLEX CORONARY ARTERY: Nondominant vessel but good caliber and distribution, has about a 30% mid lesion, long; from this diseased area, a groove branch comes off and this groove branch has about a 70% ostial narrowing. This branch is of 2 mm caliber and fair distribution. This is a small vessel and I do not believe it is significant in terms of the myocardial distribution. Continuation of the circumflex beyond the origin of the groove branch is an obtuse marginal system which is very large in caliber and distribution and distally bifurcates into two large branches. There is no significant disease in the entire circumflex system after the groove branch, which has about a 70% ostial narrowing. LEFT VENTRICULOGRAM: Left ventriculogram was not performed. FINAL IMPRESSION: This patient has a right-dominant system, total occlusion of the RCA as well as the vein graft to the RCA. Filling pressures are acceptable without any gradient across aortic valve. LAD has no significant disease, major diagonal, small in caliber and distribution, has 60% narrowing. Samish circumflex has a long 30% area of disease in the mid portion where a branch comes off like a groove branch, and this has a 70% to 80% narrowing, but the amount of myocardium supplied by the groove branch is small. Circumflex itself is a large-caliber, large-distribution vessel distally and has no significant disease. Left ventriculogram was not performed. Findings were discussed with the patient as well as her and Dr. Carter. I am recommending that we pursue aggressive medical therapy and risk factor modification. No percutaneous or surgical intervention is necessary at this time. If the patient continues to have symptoms, then we can look at different options, including percutaneous intervention, but I believe that continued medical therapy is the best approach. MMODL / IJN: [id number] /
[2021-10-06 15:24] VITALS: BP 128/64; PULSE 64
== END 2021-10-06 16:01 | disposition home or self-care (01) ==
LOC: CATHCVL 09:07
PROVIDERS: ATTEND Internal Medicine Interventional Cardiology
DX: I25.710 Atherosclerosis of autologous vein coronary artery bypass graft(s) with unstable angina pectoris (principal); I25.82 Chronic total occlusion of coronary artery; I25.110 Atherosclerotic heart disease of native coronary artery with unstable angina pectoris; I10 Essential (primary) hypertension; E78.00 Pure hypercholesterolemia, unspecified; E11.9 Type 2 diabetes mellitus without complications; E78.2 Mixed hyperlipidemia; Z20.822 Contact with and (suspected) exposure to COVID-19; I25.2 Old myocardial infarction; Z82.49 Family history of ischemic heart disease and other diseases of the circulatory system; Z95.1 Presence of aortocoronary bypass graft; Z95.5 Presence of coronary angioplasty implant and graft; Z79.899 Other long term (current) drug therapy; Z79.890 Hormone replacement therapy; Z79.4 Long term (current) use of insulin; Z88.5 Allergy status to narcotic agent
CPT/HCPCS: 93459; 87635; C1769 ×2; J2250; J2001; J3010; J1644; Q9967

== ENCOUNTER → 2023-01-09 | Outpatient (CLI) | payer MEDICARE ==
--- NOTE | 2023-01-09 18:39 | BD ---
EXAMINATION TYPE: Axial Bone Density DATE OF EXAM: 01/09/2023 CLINICAL HISTORY: 72 years old Female. ICD-10 CODE: N95.1 POST MENOPAUSAL Height: 60" Weight: 162.6lbs FRAX RISK QUESTIONS: Alcohol (3 or more units per day): No Family History (Parent hip fracture): No Glucocorticoids (More than 3mos): No (Ex: prednisone, prednisolone, methylprednisolone, dexamethasone, and hydrocortisone). History of Fracture in Adulthood: No Secondary Osteoporosis: 1. Type 1 Diabetes: No 2. Hyperthyroidism: No 3. Menopause before 45: Yes, 43 4. Malnutrition: No 5. Chronic liver disease: No Rheumatoid Arthritis: No Current Tobacco Use: No RISK FACTORS HISTORY OF: Hip Fracture (Right/Left): No Spine Fracture: No History of Wrist Fracture: No Surgery to Spine/Hip(right/left)/Wrist (right/left): Yes, lumbar laminectomy When: 2018 Family History of Osteoporosis: No Active: Yes Diet low in dairy products/other sources of calcium: No Postmenopausal woman: Yes Lost more than 2 inches in height since high school: Yes, was 63" Frequent falls: Yes Poor Health: No Hyperparathyroidism: No Adrenal Insufficiency: No MEDICATIONS: Prednisone or other steroids: No Thyroid Medications: Yes Which medication: Synthroid How Lon years Osteoporosis Medications: Lyrica, taken since 2018 Additional Medications: Cholesterol meds, blood pressure meds, Lyrica, Synthroid, reflux medication, vitamin D, Calcium, Multivitamin, Insulin Additional History: Hx of breast cancer with bilateral mastectomies, hx of lumbar laminectomy EXAM MEASUREMENTS: Bone mineral densitometry was performed using the MedWhat System. Bone mineral density about the R hip (g/cm2): 1.139 Bone mineral density about the L hip (g/cm2): 1.092 T Score values are as follows: -----R Neck: -0.8 -----L Neck: -1.4 -----R Total: 1.0 -----L Total: 0.7 Z Score values are as follows: -----R Neck: 0.8 -----L Neck: 0.2 -----R Total: 2.4 -----L Total: 2.1 Baseline @[facility] Bone mineral density about the L Wrist (g/cm2): 0.578 T Score values are as follows: -----Dist. R+U: -1.4 -----Prox. R+U: -1.2 -----Radius total: -1.6 Z Score values are as follows: -----Dist. R+U: 0.7 -----Prox. R+U: 0.8 -----Radius total: 0.5 Baseline @[facility] FRAX%s: The graph provided illustrates a 5.7% chance for a major osteoporotic fx and a 0.9% chance fo r the hips probability for fx in 10 years time. IMPRESSION: Osteopenia (T Score between -2.5 and -1). There is slightly increased risk of fracture and the patient may be considered for treatment. Re-Screen 2-5 years. NOTE: T-SCORE=SD OF THE YOUNG ADULT MEAN.
== END | disposition home or self-care (01) ==
LOC: RADBDWWP 12:10
PROVIDERS: ATTEND Family Medicine
DX: M85.851 Other specified disorders of bone density and structure, right thigh (principal); Z78.0 Asymptomatic menopausal state
CPT/HCPCS: 77080

== ENCOUNTER → 2023-06-28 | Outpatient (CLI) | payer MEDICARE ==
--- NOTE | 2023-06-28 17:43 | P.SLEEP ---
History of Present Illness DATE: 06/28/2023 CONSULTATION/NEW PATIENT EVALUATION HISTORY OF PRESENT ILLNESS/SLEEP-WAKE EVALUATION: 73-year-old lady had been evaluated in the sleep center for possible obstructive sleep apnea hypopnea syndrome. SLEEP SCHEDULE: Usually sleep schedule from 9 PM to 9 AM on weekdays and from 11:30 PM to 9 AM on weekend. FALLING ASLEEP: Patient does have problems with falling asleep, although no TV in bedroom. DURING SLEEP: Patient sleeps in different positions with snoring and awakenings from sleep 3 times with nocturia, grinding teeth, heartburn No history of hypnogogical hallucinations, sleep paralysis, or cataplexy. DURING THE DAY/WAKE STATE: In the morning patient wake up tired, falling asleep during the day. [place] sleepiness scale is and extremely high range 20. Patient takes 2 naps during the day at noon time and at 3 PM.Positive history of sleepiness while driving the car. PAST MEDICAL HISTORY: Hypertension, hyperlipidemia, hypothyroidism, but diabetes mellitus, acid reflux, anxiety, ALLERGY, coronary artery disease, breast cancer bilaterally. PAST SURGICAL HISTORY: Bilateral mastectomy, total hysterectomy, laminectomy. MEDICATIONS: Crestor 20 mg once a day, Humalog, Imdur 60 mg once a day, omeprazole 20 mg twice a day, aspirin 81 mg once a day, Xanax 0.5 mg at bedtime, Claritin 10 mg once a day, irbesartan/hydrochlorothiazide 300-12.5 mg twice a day, Lyrica 75 mg twice a day, [place], atenolol 25 mg once a day. SOCIAL HISTORY: Negative for smoking or using alcohol. FAMILY HISTORY: Lung problems, tuberculosis. REVIEW OF SYSTEMS: Snoring, multiple awakenings from sleep, significant sleepiness during the day. No fevers. No double vision. No recent chest hypertension, diabetes, mental illness. No shortness of breath. No abdominal pain. No bleeding episodes. No blood in urine. No seizure episodes. PHYSICAL EXAMINATION: GENERAL: A pleasant patient without any distress. VITAL SIGNS: BP 89/55 , HR 64 , RR 12 , weight 163.4 pounds, height 5 foot 1 and three-quarter inches, body mass index 30.1 . HEENT: PERRLA, EOMI. Evaluation of oropharynx showed tongue protrudes midline, low position of soft palate Mallampati 4. NECK: Supple. No JVD. Thyroid is not palpable. 14-3/4 inches in circumference. LUNGS: Clear to percussion and to auscultation. Good air exchange. No wheezing or rhonchi. HEART: S1, S2 regular. No murmurs, gallops or rubs. ABDOMEN: Soft and nontender. Bowel sounds are present. No organomegaly appreciated. EXTREMITIES: No clubbing or cyanosis. PHYSICIAN PRESIDENT: Awake, alert, and oriented x3. Cranial nerves 2 to 7 intact. There is no fasciculation or atrophy noted. No focal deficits observed. ASSESSMENT: 1. Snoring, multiple awakenings from sleep, extremely low position of soft palate Mallampati 4, sleepiness. Obstructive sleep apnea-hypopnea syndrome. 2. Significant excessive daytime sleepiness with Muldraugh Sleepiness Scale 20 dictated necessity to include to narcolepsy type II and idiopathic hypersomnia in differential diagnosis. 3. Hypertension. 4. Hypothyroidism. 5 diabetes mellitus. 6 . Anxiety. 7. ALLERGY. 8. Coronary artery disease, status post CABG. 9 . History of bilateral breast cancer, status post bilateral mastectomy. 10. Status post total hysterectomy. 11. Status post laminectomy. 12. Mild, borderline to overweight obesity, BMI 30.1. PLAN: 1. Polysomnography for evaluation of patient's breathing during sleep. Multiple sleep latency test if sleep study will be negative for obstructive sleep apnea hypopnea syndrome. 2. Following plan after reading sleep study. 3. Preferable position during sleep on the side. 4. No driving if patient feels any sleepiness. Patient is aware of civil and criminal liability for unsafe driving. 5. Sleep hygiene with regular sleep time for at least 7.5-8 hours. 6. Watching and losing weight. Thank you very much for referring this patient for consultation. Sincerely, Say Cristina MD, PhD, FAASM. Diplomat of [employer], Sleep Medicine Board by [employer] Environmental Journalist of [facility] Past Medical History Past Medical History: Asthma, Cancer, Diabetes Mellitus, GERD/Reflux, Hyperl ipidemia, Hypertension, Thyroid Disorder Additional Past Medical History / Comment(s): HX LEFT BREAST CANCER 2016. HX RIGHT BREAST CANCER 2002. Has Freestyle Patch for Blood Sugar monitoring. History of Any Multi-Drug Resistant Organisms: MRSA Date of last positivie culture/infection: 2002 MDRO Source:: FROM MASTECTOMY INCISION Past Surgical History: Back Surgery, Breast Surgery, Section, Coronary Bypass/CABG, Heart Catheterization With Stent, Hysterectomy, Orthopedic Surgery, Tonsillectomy Additional Past Surgical History / Comment(s): CABG-1 vessel, cardiac stents X2, bilateral mastectomy with reconstruction, laminectomy/decompression L5-S1, COLONOSCOPY, EGD, LEFT ROTATOR CUFF REPAIR. Past Anesthesia/Blood Transfusion Reactions: No Reported Reaction Date of Last Stent Placement:: 1997 Past Psychological History: No Psychological Hx Reported Smoking Status: Never smoker Past Alcohol Use History: None Reported Past Drug Use History: None Reported - Past Family History Mother Family Medical History: No Reported History Father Family Medical History: No Reported History Medications and Allergies Home Medications Medication Instructions Recorded Confirmed Type ALPRAZolam [Xanax] 0.5 mg PO HS 01/16/17 10/06/21 History Aspirin 81 mg PO DAILY 01/16/17 10/06/21 History Isosorbide Mononitrate ER [Imdur] 60 mg PO DAILY 01/16/17 10/06/21 History Loratadine [Claritin] 10 mg PO DAILY 01/16/17 10/06/21 History Multivitamins, Thera [Multivitamin 1 tab PO DAILY 01/16/17 10/06/21 History (formulary)] Omeprazole [PriLOSEC] 20 mg PO BID 01/16/17 10/06/21 History HYDROcodone/APAP 5-325MG [[place] 1 tab PO Q6H PRN 11/06/17 10/06/21 History 5-325] INSULIN LISPRO (humaLOG) [humaLOG] 12 units SQ AC-TID 11/06/17 10/06/21 History Cyanocobalamin (Vitamin B-12) 1,000 mcg PO DAILY 10/04/21 10/06/21 History [Vitamin B-12] Diclofenac Sodium [Voltaren 1 applic TOPICAL BID 10/04/21 10/06/21 History Arthritis Pain 1% Gel] Dulaglutide [Trulicity] 1.5 mg SQ TH 10/04/21 10/06/21 History Empagliflozin [Jardiance] 25 mg PO DAILY 10/04/21 10/06/21 History Ergocalciferol [Vitamin D2 (1250 1,250 mcg PO TH 10/04/21 10/06/21 History Mcg = [id number] Iu)] Fenofibrate 160 mg PO DAILY 10/04/21 10/06/21 History Insulin Degludec [Tresiba] 34 units SQ HS 10/04/21 10/06/21 History Irbesartan 300 mg PO DAILY 10/04/21 10/06/21 History Levothyroxine Sodium 100 mcg PO DAILY 10/04/21 10/06/21 History Lidocaine 5% Patch [Lidoderm] 2 patch TOPICAL DAILY 10/04/21 10/06/21 History Metoprolol Succinate (ER) [Toprol 25 mg PO DAILY 10/04/21 10/06/21 History Xl] Montelukast [Singulair] 10 mg PO DAILY 10/04/21 10/06/21 History Pregabalin [Lyrica] 150 mg PO BID 10/04/21 10/06/21 History Rosuvastatin [Crestor] 10 mg PO DAILY 10/04/21 10/06/21 History Thiamine HCl [Vitamin B-1] 100 mg PO DAILY 10/04/21 10/06/21 History hydroCHLOROthiazide 25 mg PO DAILY 10/04/21 10/06/21 History Allergies Allergy/AdvReac Type Severity Reaction Status Date / Time linezolid [From Zyvox] Allergy Dyspnea,hiv Verified 10/06/21 09:17 es morphine Allergy "I passed Verified 10/06/21 09:17 out" Sleep Note - Sleep Note Sleep Note: Temperature: Pulse Rate: Respiratory Rate: Blood Pressure: SpO2: Height: Weight: BMI: Neck Circumference:
== END ==
LOC: 3 N SLEEP 14:02
PROVIDERS: ATTEND Internal Medicine
DX: G47.33 Obstructive sleep apnea (adult) (pediatric) (principal); G47.10 Hypersomnia, unspecified; G47.419 Narcolepsy without cataplexy; I10 Essential (primary) hypertension; E78.5 Hyperlipidemia, unspecified; E11.9 Type 2 diabetes mellitus without complications; F41.9 Anxiety disorder, unspecified; G47.8 Other sleep disorders; I25.10 Atherosclerotic heart disease of native coronary artery without angina pectoris; E66.9 Obesity, unspecified; R06.83 Snoring; M96.1 Postlaminectomy syndrome, not elsewhere classified; Z68.30 Body mass index [BMI] 30.0-30.9, adult; Z95.1 Presence of aortocoronary bypass graft; Z88.5 Allergy status to narcotic agent; Z88.3 Allergy status to other anti-infective agents; Z79.82 Long term (current) use of aspirin; Z79.899 Other long term (current) drug therapy; Z79.84 Long term (current) use of oral hypoglycemic drugs
CPT/HCPCS: 99211

== ENCOUNTER 2023-12-18 07:17 | Day surgery (SDC) | payer MEDICARE ==
[2023-12-14 10:59] VITALS: BMI 27.9
[2023-12-18 07:41] VITALS: TEMP 97.8
[2023-12-18] MEDS: IV FLUID CONTINUATION 1,000 ML IV ONE ×2 (07:49→08:21)
[2023-12-18] MEDS: LACTATED RINGERS 1,000 ML IV SCH (07:50)
[2023-12-18 07:51] LABS: Glucose,Whole Blood 73 mg/dL (70-110)
[2023-12-18] MEDS ORDERED: PROPOFOL 10 MG/ML 20 ML VIAL IV ONE (08:31)
--- NOTE | 2023-12-18 08:41 | P.PCN ---
Date of Procedure: 12/18/23 Procedure(s) Performed: BRIEF HISTORY: Patient is a 73-year-old, pleasant, white female scheduled for an upper endoscopy as a part evaluation of epigastric pain for the last 2 weeks duration. Has been having intermittent darker stools.. She was recently started on Protonix 40 mg twice daily with some help. PROCEDURE PERFORMED: Esophagogastroduodenoscopy with biopsy. PREOPERATIVE DIAGNOSIS: Severe epigastric pain of 10 days duration. IV sedation per anesthesia. PROCEDURE: After informed consent was obtained, the patient was brought into the endoscopy unit. IV sedation was administered by Anesthesia under continuous monitoring. Initially the Olympus GIF-140 video endoscope was inserted into the mouth. Esophagus intubated without any difficulty. It was gradually advanced into the stomach and duodenum and carefully examined. The bulb and the second part of the duodenum appeared normal. Biopsies were done from the duodenum to evaluate for celiac disease. The scope at this time was withdrawn to the stomach, adequately insufflated with air, and upon careful examination, mucosa of the antrum, had mild diffuse gastritis and biopsies were done from this area. Mucosa of the body, cardia and the fundus appeared normal. The scope was then withdrawn into the esophagus. Small small hiatal hernia noted. The GE junction was located at 39 cm from the incisors. The esophagus appeared normal. There were no erosions or ulcerations seen, biopsies were done from the distal esophagus and the patient tolerated the procedure well. IMPRESSION: 1. Mild diffuse gastritis. 2. Small hiatal hernia. RECOMMENDATIONS: The findings of this examination were discussed with the patient as well as the family. She was advised to continue with Protonix 40 mg twice daily and follow antireflux measures. Follow-up in the office in 6 weeks..
[2023-12-18 09:04] VITALS: BP 150/72; PULSE 57; RESP 20
== END 2023-12-18 09:35 | disposition home or self-care (01) ==
LOC: ORWHC2ENDO 07:17
PROVIDERS: ATTEND Internal Medicine Gastroenterology
DX: K29.50 Unspecified chronic gastritis without bleeding (principal); K21.00 Gastro-esophageal reflux disease with esophagitis, without bleeding; K44.9 Diaphragmatic hernia without obstruction or gangrene; I10 Essential (primary) hypertension; E11.69 Type 2 diabetes mellitus with other specified complication; E78.5 Hyperlipidemia, unspecified; I25.10 Atherosclerotic heart disease of native coronary artery without angina pectoris; Z95.5 Presence of coronary angioplasty implant and graft; G47.33 Obstructive sleep apnea (adult) (pediatric); E07.9 Disorder of thyroid, unspecified; Z88.5 Allergy status to narcotic agent; Z88.1 Allergy status to other antibiotic agents; Z79.84 Long term (current) use of oral hypoglycemic drugs; Z79.899 Other long term (current) drug therapy; Z79.890 Hormone replacement therapy; Z79.82 Long term (current) use of aspirin; Z79.4 Long term (current) use of insulin
CPT/HCPCS: 88305; 88313; 88342; 43239; J2704

== ENCOUNTER → 2023-12-18 | Outpatient (CLI) | payer MEDICARE ==
[2023-12-18 17:48] LABS: Basophils # (A) 0.15 X 10*3/uL (0.00-0.10); Basophils % (A) 1.8 %; Eosinophils # (A) 0.47 X 10*3/uL (0.04-0.35); Eosinophils % (A) 5.7 %; HCT 39.1 % (37.2-46.3); HGB 11.4 g/dL (12.0-15.0); Lymphocytes # (A) 2.62 X 10*3/uL (0.90-5.00); Lymphocytes % (A) 31.6 %; MCH 23.8 pg (27.0-32.0); MCHC 29.2 g/dL (32.0-37.0); MCV 81.5 FL (80.0-97.0); Monocytes # (A) 0.57 X 10*3/uL (0.20-1.00); Monocytes % (A) 6.9 %; NRBC Per 100 WBC 0 X 10*3/uL (0.00-0.01); Neutrophils # (A) 4.44 X 10*3/uL (1.80-7.70); Neutrophils % (A) 53.4 %; Platelet Count 365 X 10*3/uL (140-440)
[2023-12-18 18:30] LABS: % Iron Saturation 6.2 (12.00-45.00); Ferritin 97.5 ng/mL (10.0-291.0)
== END | disposition home or self-care (01) ==
LOC: LABWHC1 10:32
PROVIDERS: ATTEND Internal Medicine Gastroenterology
DX: D50.9 Iron deficiency anemia, unspecified (principal)
CPT/HCPCS: 36415; 82728; 83540; 83550; 85025

== ENCOUNTER → 2024-01-18 | Outpatient (CLI) | payer MEDICARE ==
--- NOTE | 2024-02-16 07:43 | US ---
Site ID [facility] Patient Kathy Johnson J ID [id number] Age/Gender: 73Y, F Order # N/A Procedure US abdomen complete Date 01/18/2024 9:01:00 AM EXAMINATION TYPE: US abdomen complete DATE OF EXAM: 02/03/2024 COMPARISON: NONE CLINICAL INDICATION: Female, 73 year old with history of abdominal pain for one month. TECHNIQUE: Multiple sonographic images of the abdomen are obtained. FINDINGS: EXAM MEASUREMENTS: Liver Length: 13.1 cm Gallbladder Wall: 0.3 cm CBD: 0.8 cm Spleen: 10.2 cm Right Kidney: 9.4 x 4.2 x 5.3 cm Left Kidney: 11.2 x 5.8 x 5.4 cm SANITATION WORKER NOTES: Pancreas: Obscured by bowel gas Liver: Heterogenous echotexture without focal lesion. No surface nodularity. Gallbladder: wnl Evidence for sonographic Garcia's sign: No CBD: wnl Spleen: wnl Right Kidney: Prominent renal pelvis Left Kidney: Common renal pelvis Upper IVC: wnl Abd Aorta: wnl The liver is diffusely heterogenous without focal lesion. Noncirrhotic morphology. The intrahepatic portion of the IVC and proximal abdominal aorta are within normal limits. There is no evidence of ch olelithiasis. Common bile duct is unremarkable for patient's age. The visualized portions of the pa ncreas are homogenous. The spleen is unremarkable. Kidneys are symmetric and free of hydronephrosis with bilateral prominent renal pelvises. No renal lesions are seen. IMPRESSION: No ultrasound evidence for acute process.
== END | disposition home or self-care (01) ==
LOC: RADUSWWP 12:00
PROVIDERS: ATTEND Family Medicine
DX: R10.9 Unspecified abdominal pain (principal)
CPT/HCPCS: 76700

== ENCOUNTER → 2024-01-28 | Outpatient (CLI) | payer MEDICARE ==
--- NOTE | 2024-02-27 13:28 | NM ---
Patient: Kathy Johnson J Ordering Physician: Unknown, Unknown ID: [id number] Phone, Pager: Phone: N/A Pager: N/A : 1950 Age/Gender: 73Y, F Primary Location: N/A Procedure: Hepatobiliary Study Date: 01/28/2024 1:13:10 PM EXAMINATION TYPE: NM hepatobiliary w CCK DATE OF EXAM: 01/29/2024 COMPARISON: NONE CLINICAL INDICATION: Unknown, old with history of ; TECHNIQUE: After the intravenous administration of 5.1 mCi Tc 99m Mebrofenin hepatobiliary scintigrap hy is performed. Immediate images post injection. FINDINGS: There is satisfactory initial accumulation of tracer by the liver. The gallbladder is visualized wit hin 18 minutes. The small bowel activity is noted within 28 minutes. At one hour CCK was administer ed, patient was injected with 5.1 mcg of Kinevac, and gallbladder ejection fraction is calculated at 96 %. IMPRESSION: Elevated ejection fraction could reflect hyperkinesia.
== END | disposition home or self-care (01) ==
LOC: RADNMMAIN 13:00
PROVIDERS: ATTEND Family Medicine
DX: R10.9 Unspecified abdominal pain (principal); F90.9 Attention-deficit hyperactivity disorder, unspecified type
CPT/HCPCS: 78227; A9537; J2805

== ENCOUNTER → 2024-02-05 | Outpatient (CLI) | payer MEDICARE ==
[2024-02-05 18:21] LABS: Basophils % (A) 1.3 %; Eosinophils # (A) 0.37 X 10*3/uL (0.04-0.35); HCT 50.1 % (37.2-46.3); HGB 15.5 g/dL (12.0-15.0); Lymphocytes # (A) 2.45 X 10*3/uL (0.90-5.00); Lymphocytes % (A) 33.1 %; MCH 25.5 pg (27.0-32.0); MCHC 30.9 g/dL (32.0-37.0); MCV 82.3 FL (80.0-97.0); Mean Platelet Volume 10.5 FL (9.5-12.2); Monocytes % (A) 6.7 %; NRBC Per 100 WBC 0 X 10*3/uL (0.00-0.01); Neutrophils # (A) 3.98 X 10*3/uL (1.80-7.70); Neutrophils % (A) 53.8 %; Platelet Count 319 X 10*3/uL (140-440); RBC 6.09 X 10*6/uL (4.10-5.20); WBC 7.41 X 10*3/uL (4.50-10.00)
[2024-02-05 19:35] LABS: % Iron Saturation 11.85 (12.00-45.00); Ferritin 84.4 ng/mL (10.0-291.0)
[2024-02-05 21:52] LABS: Gliadin AB IgA, Deaminated Negative (Negative); Gliadin AB IgA, Unit 6.3 U/mL; Gliadin AB IgG, Deaminated Negative (Negative); Gliadin AB IgG, Unit <0.4 U/mL
== END | disposition home or self-care (01) ==
LOC: LABWHC1 13:51
PROVIDERS: ATTEND Internal Medicine Gastroenterology
DX: D50.9 Iron deficiency anemia, unspecified (principal)
CPT/HCPCS: 36415; 82728; 83516; 83540; 83550; 85025

== ENCOUNTER → 2024-02-07 | Outpatient (CLI) | payer MEDICARE ==
[2024-02-07 14:28] VITALS: BP 148/75; PULSE 49; RESP 12; TEMP 98.2
--- NOTE | 2024-02-07 14:50 | P.PROGSL ---
Subjective DATE: 02/07/2024 FOLLOW UP VISIT. Patient with obstructive sleep apnea hypopnea syndrome return to sleep center for follow-up visit. Recently patient had sleep study which documented obstructive sleep apnea hypopnea syndrome. Patient was initiated on PAP therapy and today is first visit after treatment was started. Patient was able to use PAP equipment every night for the whole night. The patient does not have significant problems with the mask, PAP pressure and humidification. [place] sleepiness scale is 4, which is normal. I checked information from PAP unit. PAP unit pressure 5-14, average 11.7 cm H2O. Usage is 87% and 63% for more then 4 hours, average 6 hours per night. Leak is 19.8 l/m, which is in acceptable range. Apnea Hypopnea Index is 1.0, which is normal. MEDICATIONS: Please see below During physical exam: GENERAL: A pleasant patient without any distress. VITAL SIGNS: Please see below, weight is 150.8 pounds. HEENT: PERRLA, EOMI.low position of soft palate, Mallapati 4 . NECK: Supple. No JVD. LUNGS: Clear to percussion and to auscultation. Good air exchange. No wheezing or rhonchi. HEART: S1, S2 regular. ABDOMEN: Soft and nontender.[] EXTREMITIES: No clubbing or cyanosis. 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 No focal deficit. Impressions: 1. Obstructive sleep apnea-hypopnea syndrome. Patient demonstrated good compliance with treatment, benefiting from treatment. 2. Hypertension. 3. Hypothyroidism. 4. Diabetes mellitus. 5. Anxiety. 6. Coronary artery disease, status post CABG. 7. Status post bilateral mastectomy for bilateral breast cancer. 8. Status post total hysterectomy. 9. Status post laminectomy. Plan: 1. Continue using PAP equipment every night for the whole night. 2. To change air filter at least 1-2 times per month. 3. PAP unit should stay lower then position of the head. 4. Advised patient to remove all remaining water from humidifier canister daily and make it dry after each usage. Refill canister with fresh distilled water before each usage. 5. Sleep hygiene with regular time in bed for at least 8 hours. 6. Precautions related to driving. No driving if feel any sleepiness. 7. I will maintain prescription for PAP supplies including mask, tube, filters. 8. Follow up visit in 6 months or earlier if patient has any problems. 9. Watching weight. Thank you very much for allowing me to participate in the management of your patient. Say Cristina MD, PhD, FAASM. Diplomat of [place] [employer], Sleep Medicine Board by [place] [employer] Preschool Assistant Director of [facility] [place] Objective - Vital Signs Vital Signs: Vital Signs Temp 98.2 F 02/07/24 14:27 Pulse 49 L 02/07/24 14:27 Resp 12 02/07/24 14:27 BP 148/75 02/07/24 14:27 Pulse Ox 96 02/07/24 14:27 FiO2 Intake & Output 02/06/24 02/07/24 02/07/24 18:59 06:59 18:59 Weight 68.039 kg Home Medications: Home Medications Medication Instructions Recorded Confirmed Type ALPRAZolam [Xanax] 0.5 mg PO HS 01/16/17 12/14/23 History Aspirin 81 mg PO DAILY 01/16/17 12/14/23 History Isosorbide Mononitrate ER [Imdur] 60 mg PO QAM 01/16/17 12/14/23 History Loratadine [Claritin] 10 mg PO DAILY 01/16/17 12/14/23 History Multivitamins, Thera [Multivitamin 1 tab PO DAILY 01/16/17 12/14/23 History (formulary)] HYDROcodone/APAP 5-325MG [[place] 1 tab PO Q6H PRN 11/06/17 12/14/23 History 5-325] INSULIN LISPRO (humaLOG) [humaLOG] 0 units SQ ACHS PRN 11/06/17 12/14/23 History Cyanocobalamin (Vitamin B-12) 1,000 mcg PO DAILY 10/04/21 12/14/23 History [Vitamin B-12] Diclofenac Sodium [Voltaren 1 applic TOPICAL BID PRN 10/04/21 12/14/23 History Arthritis Pain 1% Gel] Empagliflozin [Jardiance] 25 mg PO DAILY 10/04/21 12/14/23 History Ergocalciferol [Vitamin D2 (1250 1,250 mcg PO TH 10/04/21 12/14/23 History Mcg = 77555 Iu)] Fenofibrate 160 mg PO DAILY 10/04/21 12/14/23 History Levothyroxine Sodium 75 mcg PO QAM 10/04/21 12/14/23 History Lidocaine 5% Patch [Lidoderm] 2 patch TOPICAL DAILY PRN 10/04/21 12/14/23 History Metoprolol Succinate (ER) [Toprol 25 mg PO QAM 10/04/21 12/14/23 History Xl] Montelukast [Singulair] 10 mg PO HS 10/04/21 12/14/23 History Rosuvastatin [Crestor] 20 mg PO HS 10/04/21 12/14/23 History hydroCHLOROthiazide 25 mg PO DAILY PRN 10/04/21 12/14/23 History Ferrous Sulfate [Feosol] 325 mg PO BID 12/14/23 12/14/23 History Insulin Glargine,Hum.rec.anlog 45 units SQ HS 12/14/23 12/14/23 History [Basaglar Tempo Pen U-100] Pantoprazole [Protonix] 40 mg PO BID 12/14/23 12/14/23 History amLODIPine 10 mg PO HS 12/14/23 12/14/23 History
== END ==
LOC: 3 N SLEEP 14:03
PROVIDERS: ATTEND Internal Medicine
CPT/HCPCS: 99212

== ENCOUNTER → 2024-03-27 | Outpatient (CLI) | payer MEDICARE ==
[2024-03-27 15:24] LABS: Basophils # (A) 0.12 X 10*3/uL (0.00-0.10); Basophils % (A) 1.4 %; Eosinophils # (A) 0.38 X 10*3/uL (0.04-0.35); Eosinophils % (A) 4.5 %; HCT 50.1 % (37.2-46.3); HGB 15.6 g/dL (12.0-15.0); Lymphocytes % (A) 29.8 %; MCH 26.5 pg (27.0-32.0); MCHC 31.1 g/dL (32.0-37.0); MCV 85.1 FL (80.0-97.0); Mean Platelet Volume 10.7 FL (9.5-12.2); Monocytes # (A) 0.55 X 10*3/uL (0.20-1.00); Monocytes % (A) 6.6 %; NRBC Per 100 WBC 0 X 10*3/uL (0.00-0.01); Neutrophils # (A) 4.77 X 10*3/uL (1.80-7.70); Platelet Count 276 X 10*3/uL (140-440); RBC 5.89 X 10*6/uL (4.10-5.20); RDW 16.7 % (11.5-14.5); WBC 8.38 X 10*3/uL (4.50-10.00)
[2024-03-27 15:33] LABS: ALT 31 U/L (8-44); AST 43 U/L (13-35); Albumin/Globulin Ratio 1.67 Ratio (1.60-3.17); Alkaline Phosphatase 73 U/L (41-126); BUN/Creat Ratio 16.67 Ratio (12.00-20.00); Calcium 9.8 mg/dL (8.7-10.3); Carbon Dioxide 27.9 mmol/L (21.6-31.8); Chloride 106 mmol/L (96-109); Chol/HDL Ratio 3.67 Ratio; Globulin 2.4 g/dL (1.6-3.3); Glucose 86 mg/dL (70-110); LDL Cholesterol,Calculated 132.2 mg/dL (0.0-131.0); Lipase 112 U/L (14-63); Potassium 4.1 mmol/L (3.5-5.5); Sodium 145 mmol/L (135-145); T4, Free (Free Thyroxine) 1.15 ng/dL (0.80-1.80); Total Bilirubin 0.4 mg/dL (0.3-1.2); Total Protein 6.4 g/dL (6.2-8.2)
== END | disposition home or self-care (01) ==
LOC: LABWHC1 10:14
PROVIDERS: ATTEND Family Medicine
CPT/HCPCS: 36415; 80053; 80061; 82043; 82570; 83036; 83690; 84439; 84443; 85025

== ENCOUNTER → 2024-09-11 | Outpatient (CLI) | payer MEDICARE ==
[2024-09-11 14:21] VITALS: BP 169/70; PULSE 58; RESP 16; TEMP 98.2
--- NOTE | 2024-09-11 15:11 | P.SLEEP ---
History of Present Illness DATE: 09/11/2024 FOLLOW UP VISIT. Patient with obstructive sleep apnea hypopnea syndrome return to sleep center for follow-up visit. Information from previous visit have been reviewed. Patient is using PAP equipment every night for the whole night, getting PAP supplies in time. The patient does not have significant problems with the mask, PAP unit and humidification. [place] sleepiness scale is significantly increased to 17. I checked information from PAP unit. PAP unit pressure 5-14, average 12.4 cm H2O. Usage is 95% for more then 4 hours, average 0.8 hours per night. Leak is 18 l/m, which is in acceptable range. Apnea Hypopnea Index is 0.8, which is normal. MEDICATIONS have been reviewed, please see below. During physical exam: GENERAL: A pleasant patient without any distress. VITAL SIGNS: Please see below, weight is 148 lbs. HEENT: PERRLA, EOMI.low position of soft palate, Mallapati 4 . NECK: Supple. No JVD. LUNGS: Clear to percussion and to auscultation. Good air exchange. No wheezing or rhonchi. HEART: S1, S2 regular. ABDOMEN: Soft and nontender.[] EXTREMITIES: No clubbing or cyanosis. 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 No focal deficit. Impressions: 1. Obstructive sleep apnea-hypopnea syndrome. Patient demonstrated great compliance with treatment, benefiting from treatment. 2. Hypertension. 3. Hypothyroidism. 4. Diabetes mellitus. 5. Anxiety. 6. Coronary artery disease, status post CABG. 7. Status post bilateral mastectomy for bilateral breast cancer. 8. Status post laminectomy. 9. Status post total hysterectomy. Plan: 1. Continue using PAP equipment every night for the whole night. 2. Sleep hygiene with regular time in bed for at least 7.5-8 hours 3. PAP unit should stay lower then position of the head. 4. Advised patient to remove all remaining water from humidifier canister daily and make it dry after each usage. Refill canister with fresh distilled water before each usage. 5. Watching weight. 6. Precautions related to driving. No driving if feel any sleepiness. 7. I will maintain prescription for PAP supplies including mask, tube, filters. 8. Follow up visit in 8 months or earlier if patient has any problems. Thank you very much for allowing me to participate in the management of your patient. Say Cristina MD, PhD, FAASM. Diplomat of [place] [employer], Sleep Medicine Board by [place] [employer] of [employer] Decal Applier of [facility] [place] Past Medical History Past Medical History: Asthma, Cancer, Diabetes Mellitus, GERD/Reflux, Hyperlipidemia, Hypertension, Thyroid Disorder Additional Past Medical History / Comment(s): abdominal pain possible pancreatitis/GI bleed-anemia, HX LEFT BREAST CANCER 2015. HX RIGHT BREAST CANCER 2002. overactive gallbladder, celiac disease History of Any Multi-Drug Resistant Organisms: MRSA Date of last positivie culture/infection: 2002 MDRO Source:: FROM MASTECTOMY INCISION Past Surgical History: Back Surgery, Breast Surgery, Section, Coronary Bypass/CABG, Heart Catheterization With Stent, Hysterectomy, Orthopedic Surgery, Tonsillectomy Additional Past Surgical History / Comment(s): CABG-1 vessel, cardiac stents X2, bilateral mastectomy with reconstruction, laminectomy/decompression L5-S1, COLONOSCOPY, EGD, LEFT ROTATOR CUFF REPAIR. Past Anesthesia/Blood Transfusion Reactions: No Reported Reaction Additional Past Anesthesia/Blood Transfusion Reaction / Comment(s): no complication w/ prior blood transfusion Date of Last Stent Placement:: 1997 Past Psychological History: No Psychological Hx Reported Smoking Status: Never smoker Past Alcohol Use History: None Reported Past Drug Use History: None Reported - Past Family History Brother(s) Family Medical History: Cancer Additional Family Medical History / Comment(s): colon Medications and Allergies Home Medications Medication Instructions Recorded Confirmed Type ALPRAZolam [Xanax] 0.5 mg PO HS 01/16/17 12/14/23 History Aspirin 81 mg PO DAILY 01/16/17 12/14/23 History Isosorbide Mononitrate ER [Imdur] 60 mg PO QAM 01/16/17 12/14/23 History Loratadine [Claritin] 10 mg PO DAILY 01/16/17 12/14/23 History Multivitamins, Thera [Multivitamin 1 tab PO DAILY 01/16/17 12/14/23 History (formulary)] HYDROcodone/APAP 5-325MG [[place] 1 tab PO Q6H PRN 11/06/17 12/14/23 History 5-325] INSULIN LISPRO (humaLOG) [humaLOG] 0 units SQ ACHS PRN 11/06/17 12/14/23 History Cyanocobalamin (Vitamin B-12) 1,000 mcg PO DAILY 10/04/21 12/14/23 History [Vitamin B-12] Diclofenac Sodium [Voltaren 1 applic TOPICAL BID PRN 10/04/21 12/14/23 History Arthritis Pain 1% Gel] Empagliflozin [Jardiance] 25 mg PO DAILY 10/04/21 12/14/23 History Ergocalciferol [Vitamin D2 (1250 1,250 mcg PO TH 10/04/21 12/14/23 History Mcg = 12155 Iu)] Fenofibrate 160 mg PO DAILY 10/04/21 12/14/23 History Levothyroxine Sodium 75 mcg PO QAM 10/04/21 12/14/23 History Lidocaine 5% Patch [Lidoderm] 2 patch TOPICAL DAILY PRN 10/04/21 12/14/23 History Metoprolol Succinate (ER) [Toprol 25 mg PO QAM 10/04/21 12/14/23 History Xl] Montelukast [Singulair] 10 mg PO HS 10/04/21 12/14/23 History Rosuvastatin [Crestor] 20 mg PO HS 10/04/21 12/14/23 History hydroCHLOROthiazide 25 mg PO DAILY PRN 10/04/21 12/14/23 History Ferrous Sulfate [Feosol] 325 mg PO BID 12/14/23 12/14/23 History Insulin Glargine,Hum.rec.anlog 45 units SQ HS 12/14/23 12/14/23 History [Basaglar Tempo Pen U-100] Pantoprazole [Protonix] 40 mg PO BID 12/14/23 12/14/23 History amLODIPine 10 mg PO HS 12/14/23 12/14/23 History Allergies Allergy/AdvReac Type Severity Reaction Status Date / Time linezolid [From Zyvox] Allergy Dyspnea,hiv Verified 12/18/23 07:33 es morphine Allergy "I passed Verified 12/18/23 07:33 out" Physical Exam Vitals: Vital Signs Temp Pulse Resp BP Pulse Ox 09/11/24 14:20 98.2 F 58 L 16 169/70 98 Sleep Note - Sleep Data ESS Total: 17 - Sleep Note Sleep Note: Temperature: 98.2 F Pulse Rate: 58 Respiratory Rate: 16 Blood Pressure: 169/70 SpO2: 98 Height: Weight: BMI: Neck Circumference:
== END ==
LOC: 3 N SLEEP 13:31
PROVIDERS: ATTEND Internal Medicine
DX: G47.33 Obstructive sleep apnea (adult) (pediatric) (principal); I10 Essential (primary) hypertension; E03.9 Hypothyroidism, unspecified; E11.9 Type 2 diabetes mellitus without complications; F41.9 Anxiety disorder, unspecified; I25.10 Atherosclerotic heart disease of native coronary artery without angina pectoris; Z95.1 Presence of aortocoronary bypass graft; Z90.13 Acquired absence of bilateral breasts and nipples; Z90.710 Acquired absence of both cervix and uterus; Z88.5 Allergy status to narcotic agent; Z98.890 Other specified postprocedural states; Z88.8 Allergy status to other drugs, medicaments and biological substances
CPT/HCPCS: 99212